=== PATIENT | male | born 1955 | race Caucasian/White ===

== ENCOUNTER → 2018-03-10 | Outpatient (REF) | payer BC ==
[~2018-03-10] MED LIST: ACET-2708 PO; ASPI-715 PO; CALC-515 PO; CANA100T PO; DULA0.75 SUBQ; FISH OIL1 CAP PO; GLY5 PO; LISI-347 PO; MESA400C2 PO; METF-420 PO; METO25TA91 PO; METO25TA93 PO; METXR500 PO; OMEG1CAP99 PO; OMEP-125 PO; ROS10 PO; ROSU20TA5 PO; SITA100T9 PO; TRINTELLIX PO; ZOLP-350 PO
== END ==
LOC: ZZSENDIN 09:34
PROVIDERS: ATTEND Physician Assistant
DX: E78.2 Mixed hyperlipidemia (principal)
CPT/HCPCS: 82465; 83718; 84478